=== PATIENT | female | born 1940 | race Caucasian/White ===

== ENCOUNTER → 2016-10-18 | Outpatient (CLI) | payer MEDICARE, OTHER ==
[2014-09-02 18:47] VITALS: BP 145/75
[~2016-10-18] MED LIST: ESOM40CA25 PO; SERT50TA PO
--- NOTE | 2016-10-18 11:30 | RAD ---
Examination: CT head and maxillofacial bones without contrast History: History of left facial pain, headache Comparison: CT head from 09/02/2014 Technique: Axial CT images of the head was performed without contrast. Axial CT images of the maxillary facial bones were performed without contrast. Coronal and sagittal reformats were performed Findings: The ventricles and sulci are normal for the patient's age. No mass-effect, intracranial mass, midline shift, hemorrhage or obvious acute infarction is identified. Basilar cisterns are patent. Bone windows demonstrate no significant calvarial abnormality. The visualized paranasal sinuses appear clear. The bilateral orbital globes appear intact. The retro-orbital fat is maintained. The visualized ethmoidal sinuses, sphenoid sinus, maxillary sinuses are clear. The mastoid air cells are clear. The bilateral orbital titus appear intact. Mild degenerative changes identified in the bilateral temporomandibular joints , left greater than right. The bilateral pterygoid plates appear intact. Impression: 1. No acute intracranial findings. 2. Mild degenerative changes left temporomandibular joint. PQRS Compliance Statement: One or more of the following individualized dose reduction techniques were utilized for this examination: 1. Automated exposure control 2. Adjustment of the mA and/or kV according to patient size 3. Use of iterative reconstruction technique
== END | disposition home or self-care (01) ==
LOC: CT 10:31
PROVIDERS: ATTEND General Practice
DX: R51 Headache (principal); M26.69 Other specified disorders of temporomandibular joint
CPT/HCPCS: 70450; 70486

== ENCOUNTER → 2017-05-11 | Outpatient (CLI) | payer MEDICARE, OTHER ==
[2014-09-02 18:47] VITALS: BP 145/75
== END | disposition home or self-care (01) ==
LOC: LAB 09:16
PROVIDERS: ATTEND Internal Medicine Cardiovascular Disease
DX: E78.4 Other hyperlipidemia (principal); I35.1 Nonrheumatic aortic (valve) insufficiency; I10 Essential (primary) hypertension
CPT/HCPCS: 80061

== ENCOUNTER 2017-12-16 19:58 | Emergency (ER) | payer MEDICARE, OTHER ==
[~2017-12-16] VITALS: Ht 152.4 cm; Wt 68.7 kg
[2017-12-16 20:44] VITALS: BP 164/115
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
== END 2017-12-16 21:08 | disposition home or self-care (01) ==
LOC: ER 19:58
DX: S80.02XA Contusion of left knee, initial encounter (principal); G89.29 Other chronic pain; F41.9 Anxiety disorder, unspecified; K21.9 Gastro-esophageal reflux disease without esophagitis; Z88.8 Allergy status to other drugs, medicaments and biological substances; W01.0XXA Fall on same level from slipping, tripping and stumbling without subsequent striking against object, initial encounter; Y93.89 Activity, other specified; Y99.8 Other external cause status; Y92.89 Other specified places as the place of occurrence of the external cause
CPT/HCPCS: 73564; 99284

== ENCOUNTER → 2019-06-12 | Outpatient (CLI) | payer MEDICARE, OTHER ==
--- NOTE | 2019-06-12 22:21 | RAD ---
PA and lateral chest. HISTORY: Chest congestion PA and lateral views of the chest were compared with a study from June 2016. There is linear scarring on the right. There is a granuloma on the right lung without change. The aorta is tortuous. There is no pleural effusion. There is no confluent infiltrate. IMPRESSION: 1. Linear scarring. 2. No acute infiltrates. Electronically signed by: Arturo Benjamin MD (06/12/2019 10:18 PM) [facility]
== END | disposition home or self-care (01) ==
LOC: PMG 17:36
PROVIDERS: ATTEND Family Medicine
DX: J98.4 Other disorders of lung (principal)
CPT/HCPCS: 71046

== ENCOUNTER → 2020-02-04 | Outpatient (CLI) | payer MEDICARE, OTHER ==
--- NOTE | 2020-02-10 08:39 | RAD ---
DATE: 02/04/2020 11:20 AM EXAM: MAMMO BART SCREENING BILATERAL HISTORY: Screening COMPARISON: 01/29/2019, 01/08/2018 Bilateral CC and MLO views of the breasts were performed. Bilateral breast tomosynthesis was performed in CC and MLO projections. This study was interpreted with the benefit of Computerized Aided Detection (CAD). FINDINGS: Breast Density: SCATTERED The breast parenchyma shows scattered fibroglandular densities. Breast parenchyma level B No suspicious masses, microcalcifications or architectural distortion is present to suggest malignancy in either breast. The visualized axillae are unremarkable. IMPRESSION: No mammographic evidence of malignancy. BI-RADS CATEGORY: 1 NEGATIVE RECOMMENDED FOLLOW-UP: 12M 12 MONTH FOLLOW-UP Annual screening mammography is recommended, unless clinically indicated sooner based on symptoms or change in physical exam. PQRS compliance statement: Patient information was entered into a reminder system with a target due date for the next mammogram. Mammography is a sensitive method for finding small breast cancers, but it does not detect them all and is not a substitute for careful clinical examination. A negative mammogram does not negate a clinically suspicious finding and should not result in delay in biopsying a clinically suspicious abnormality. "Our facility is accredited by the [employer] Mammography [employer]."
== END ==
LOC: MAMMO 11:06
PROVIDERS: ATTEND Physician Assistant Medical
DX: Z12.31 Encounter for screening mammogram for malignant neoplasm of breast (principal)
CPT/HCPCS: 77063; 77067

== ENCOUNTER → 2020-07-07 | Outpatient (CLI) | payer MEDICARE, OTHER ==
[~2020-07-07] MED LIST changes: +IOHEXOL 240 MG/ML 50ML VIAL. ONE; +IOHEXOL 240 MG/ML 50ML VIAL. PO ONE; +IOHEXOL 300 MG/ML 75 ML VIAL. IV ONE
--- NOTE | 2020-07-07 16:26 | RAD ---
INDICATION: Osteoporosis screening. Postmenopausal follow-up COMPARISON: 05/09/2016 TECHNIQUE: Bone densitometry was performed through the lumbar spine and proximal femur. FINDINGS: Lumbar Spine: BMD: 1.2 T-Score: 0.1 Similar to prior. Scoliotic curvature the spine with degenerative changes. Proximal Femur: BMD: 0.76 T-Score: -1.6 Decreased by 2 percent from prior IMPRESSION: 1. Lumbar spine falls within the normal range. 2. Proximal femur falls within the osteopenic range. Electronically signed by: Yordan Luis MD (07/07/2020 4:23 PM) [id number]
--- NOTE | 2020-07-07 17:23 | RAD ---
EXAM: CT Abdomen and Pelvis with IV contrast CLINICAL HISTORY: Right LOWER QUAD PAIN OSTEOPENIA COMPARISON: none TECHNIQUE: Helical CT of the abdomen and pelvis was performed following the administration of intrave nous contrast. Axial, coronal and sagittal reformatted images were generated. PQRS compliance statement - One or more of the following individualized dose reduction techniques wer e utilized for this study: 1. Automated exposure control 2. Adjustment of the mA and/or kV according to patient size 3. Use of iterative reconstruction technique FINDINGS: Lower Chest: 4 mm left lower lobe lung nodule (series 2 image 60) seen. Minimal dependent opacities bilateral like ly atelectasis. Prominent pericardial recess adjacent to the right pulmonary vein. Abdomen and Pelvis: Hepatic hypoattenuation likely fatty liver. Gallbladder is normal. No biliary ductal dilatation. 13 m m hypodense pancreatic body lesion is indeterminate.. Spleen is unremarkable. Adrenal glands are norm al. Symmetric nephrograms. No focal renal lesion. No hydronephrosis. Bladder is grossly unremarkable. Moderate colonic stool content is seen. Appendix is normal. No small or large bowel dilatation. No ani wel obstruction. No abdominal or pelvic ascites. No abdominal or pelvic lymphadenopathy. Bones: Rightward curvature of the lumbar spine apex L1. Multilevel degenerative changes of the spine are see n. Trace anterolisthesis of L4 on L5 likely degenerative. Decreased bone mineral density. IMPRESSION: 1. Hepatic appendix is normal. 2. Multilevel degenerative changes of the spine. Within the constraints of osteopenia, no evidence f or acute fracture 3. Hypoattenuation likely fatty liver. 4. 13 mm hypodense pancreatic body lesion is indeterminate. This can be further assessed by MRI or c omparison with prior images if available. 5. Moderate colonic stool content. No bowel obstruction. 6. 4 mm left lower lobe lung nodule. Per Fleischner Society guidelines for incidentally found solid nodules measuring less than 6 mm, no follow-up is necessary if patient is considered at low risk for lung cancer. If patient is considered to be at high risk, such as with history of smoking, then CT fo llow-up in about 12 months can be considered. Electronically signed by: Andres Villegas MD (07/07/2020 5:21 PM) [id number]
== END ==
LOC: CT 13:08
PROVIDERS: ATTEND Physician Assistant Medical
DX: M85.88 Other specified disorders of bone density and structure, other site (principal); R10.31 Right lower quadrant pain; J98.11 Atelectasis; M43.8X6 Other specified deforming dorsopathies, lumbar region
CPT/HCPCS: 74177; 77080; Q9966; Q9967

== ENCOUNTER → 2021-03-31 | Outpatient (CLI) | payer MEDICARE, OTHER ==
[~2021-03-31] MED LIST changes: -IOHEXOL 240 MG/ML 50ML VIAL. ONE; -IOHEXOL 240 MG/ML 50ML VIAL. PO ONE; -IOHEXOL 300 MG/ML 75 ML VIAL. IV ONE
--- NOTE | 2021-03-31 13:18 | RAD ---
History: 81-year-old asymptomatic female patient presents for routine screening mammogram. PROCEDURE: 3-D tomosynthesis was performed of the breasts bilaterally. 2-D C-view craniocaudal and mediolateral oblique digital mammograms were also generated. The images were also evaluated with [employer]er-aided detection and the CAD results were analyzed. Previous: Bilateral mammogram from 02/04/2020 and priors. FINDINGS: Density level B: There are scattered fibroglandular densities. There are no suspicious masses, suspic ious microcalcifications or areas of architectural distortion.Stable nodularities in both breasts an d benign stable chunky calcification is seen in the right breast IMPRESSION: Benign mammogram. Patient information was entered into the [employer] reminder system with a target due date for the next screening mammogram . Routine annual screening mammogram in one year ad vised. BI-RADS Category 2: Benign. A mammogram does not have 100% sensitivity and therefore a negative imaging study should not delay fu rther work up of a suspicious abnormality. PQRS compliance statement: Patient information was entered into the [employer] reminder system with a ta rget due date for the next screening mammogram . Routine annual screening mammogram in one year advis ed. "Our facility is accredited by the [employer] Mammography Program." Electronically signed by: Erna Sun MD (03/31/2021 1:15 PM) [id number]
== END ==
LOC: MAMMO 11:05
PROVIDERS: ATTEND Physician Assistant Medical
DX: Z12.31 Encounter for screening mammogram for malignant neoplasm of breast (principal)
CPT/HCPCS: 77063; 77067

== ENCOUNTER → 2021-04-18 | Outpatient (CLI) | payer MEDICARE, OTHER ==
--- NOTE | 2021-04-18 11:21 | RAD ---
EXAM: Right foot, 3 views; right ankle, 3 views. HISTORY: Pain with weightbearing. COMPARISON: 12/26/2015 FINDINGS: 3 views of the right foot and ankle are obtained. There is chronic deformity of the fifth p roximal phalanx with suspected partial resection and widening of the fifth proximal interphalangeal j oint. The fifth distal individual joint is fused, a normal variant. There is abduction of the fourth phalanx. There is degenerative spurring involving the first metatarsal phalangeal joint. There is ent hesopathy at the Achilles tendon insertion. There is internal fixation of a healed distal fibular met adiaphyseal fracture and medial malleolar fracture. There is severe tibiotalar joint space narrowing with degenerative subchondral sclerosis and subchondral cyst formation. IMPRESSION: 1. Severe tibiotalar joint osteoarthritis. 2. Internal fixation of healed bimalleolar fractures. 3. Enthesopathy at the Achilles tendon insertion. 4. Mild first metatarsal phalangeal joint osteoarthritis and chronic deformity of the fifth proximal phalanx. Electronically signed by: Shahla Bedolla MD (04/18/2021 11:18 AM) [id number]
== END ==
LOC: RAD 09:50
PROVIDERS: ATTEND Podiatrist
DX: M19.071 Primary osteoarthritis, right ankle and foot (principal); M77.8 Other enthesopathies, not elsewhere classified; M21.6X1 Other acquired deformities of right foot
CPT/HCPCS: 73610; 73630